=== PATIENT | male | born 1955 | race Caucasian/White ===

== ENCOUNTER 2022-03-23 13:47 | Emergency (ER) | payer MEDICARE ==
[~2022-03-23] VITALS: Ht 180.3 cm; Wt 125.0 kg
[2022-03-23] MEDS ORDERED: LOSARTAN POTAS100 MG PO (14:07)
[2022-03-23] MEDS ORDERED: SODIUM CHLORIDE 0.9% 1000ML 1,000 ML IV STA (14:11)
[2022-03-23] MEDS ORDERED: KETOROLAC TROMETHAMINE 30 MG/ML VIAL IV STA (14:11)
[2022-03-23] MEDS ORDERED: FAMOTIDINE 20 MG/2 ML VIAL IV STA (14:15)
[2022-03-23] MEDS ORDERED: SODIUM CHLORIDE 0.9% 1000ML 1,000 ML ONE (14:29)
[2022-03-23] MEDS ORDERED: IOPAMIDOL 370 MG/ML 100 ML INFUS..BTL INJ ONE (14:35)
[2022-03-23] MEDS ORDERED: ONDANSETRON HCL INJ 2MG/ML 2ML 2 MG/ML VIAL IV STA (14:58)
[2022-03-23] MEDS ORDERED: Morphine 4mg INJECTION 4 MG/ML INJ IV ONE (15:00)
== END 2022-03-23 15:30 | disposition home or self-care (01) ==
LOC: FSED 13:54
DX: R10.32 Left lower quadrant pain (principal); R10.12 Left upper quadrant pain; K57.90 Diverticulosis of intestine, part unspecified, without perforation or abscess without bleeding; I10 Essential (primary) hypertension; M54.9 Dorsalgia, unspecified; G89.29 Other chronic pain
CPT/HCPCS: 74177; 80048; 80076; 81003; 85025; 96374; 96375; 99284; J1885; J2270; J2405; J7030; Q9967